=== PATIENT | male | born 1990 | race Caucasian/White ===

== ENCOUNTER 2022-07-30 04:02 | Emergency (ER) | payer MEDICAID ==
[~2022-07-30] VITALS: Ht 188 cm; Wt 94.5 kg
--- NOTE | 2022-07-30 05:24 | NUR ---
UPON EVALUATION FROM ER MD BEEBE THE PT WILL BE CALLED [facility] PER PT REQUEST.
[2022-07-30 07:16] VITALS: BP 114/70
== END 2022-07-30 09:26 | disposition home or self-care (01) ==
LOC: ER 04:04
DX: F41.9 Anxiety disorder, unspecified (principal)
CPT/HCPCS: 99284